=== PATIENT | male | born 1965 | race Caucasian/White ===

== ENCOUNTER 2018-01-04 10:54 | Emergency (ER) | payer MEDICAID ==
[~2018-01-04] VITALS: Ht 167.6 cm; Wt 85.7 kg
[2018-01-04] MEDS ORDERED: SODIUM CHLORIDE 0.9% 1,000 ML IV ONE (11:17)
[2018-01-04 11:46] LABS: Basophils # (auto) 0 uL; Basophils % (auto) 0.3 % (0.0-2.0); Eosinophils # (auto) 0.3 uL; Eosinophils % (auto) 2.2 % (0.0-7.0); Hematocrit 43.9 % (41.0-53.0); Hemoglobin 14.6 g/dL (13.5-17.5); Lymphocytes # (auto) 1.6 uL; Lymphocytes % (auto) 13.8 % (10.0-50.0); Mean Corpuscular Hemoglobin 29.4 pg (28.0-32.0); Mean Corpuscular Hgb Conc. 33.3 g/dL (32.0-36.0); Mean Corpuscular Volume 88.4 fL (80.0-100.0); Monocytes # (auto) 0.6 uL; Monocytes % (auto) 5.3 % (0.0-12.0); Neutrophils # (auto) 9.3 uL; Neutrophils % (auto) 78.4 % (37.0-80.0); Nucleated Red Blood Cells % 0.1 %; Platelet Count (auto) 219 10^3/uL (140-450); Red Blood Cells 4.97 10^6/uL (4.5-5.90); Red Cell Distribution Width 14.2 % (11.8-14.3); White Blood Cell 11.8 10^3/uL (4.4-10.8)
[2018-01-04 12:04] LABS: INR 0.98 (0.9-1.15); Prothrombin Time 10.7 sec (9.37-12.3)
[2018-01-04 12:11] LABS: Alanine Aminotransferase 29 U/L (16-61); Albumin 3.6 g/dL (3.4-5.0); Alkaline Phosphatase 75 U/L (45-117); Anion Gap 8 (5-15); Aspartate Aminotransferase 24 U/L (15-37); BUN/Creatinine Ratio 23.1; Bilirubin, Total 0.3 mg/dL (0.2-1.0); Blood Urea Nitrogen 25 mg/dL (7-18); Calcium 8.7 mg/dL (8.5-10.1); Carbon Dioxide 26 mmol/L (21-32); Chloride 105 mmol/L (98-107); GFR African American 92 mL/min; GFR Non-African American 76 mL/min; Glucose 139 mg/dL (74-106); Magnesium 2.6 mg/dL (1.6-2.6); Sodium 139 mmol/L (136-145); Total Protein 6.9 g/dL (6.4-8.2)
[2018-01-04] MEDS ORDERED: NALBUPHINE HCL 10 MG/1ml INJECTION IV ONE (12:15)
[2018-01-04] MEDS ORDERED: PROMETHAZINE HCL 25 MG/ML 1ML IV ONE (12:15)
[2018-01-04 12:34] LABS: Amylase 37 U/L (25-115); Lipase 119 U/L (73-393)
[2018-01-04 15:25] VITALS: BP 138/80
== END 2018-01-04 16:37 | disposition home or self-care (01) ==
LOC: ER 10:54
DX: K80.70 Calculus of gallbladder and bile duct without cholecystitis without obstruction (principal); R07.9 Chest pain, unspecified
CPT/HCPCS: 36415; 71045; 76700; 80053; 82150; 83690; 83735; 84443; 84484; 85025; 85379; 85610; 85730; 94761; 96361; 96374; 96375; 99285; J2300; J2550; J7030; 93005

== ENCOUNTER 2019-02-16 01:51 | Emergency (ER) | payer MEDICAID ==
[~2019-02-16] VITALS: Ht 167.6 cm; Wt 81.6 kg
[2019-02-16 02:10] VITALS: BP 148/85
[2019-02-16 02:29] LABS: Basophils # (auto) 0 uL; Basophils % (auto) 0.4 % (0.0-2.0); Eosinophils # (auto) 0.2 uL; Eosinophils % (auto) 2.7 % (0.0-7.0); Hematocrit 46.9 % (41.0-53.0); Hemoglobin 15.8 g/dL (13.5-17.5); Lymphocytes # (auto) 1.4 uL; Mean Corpuscular Hemoglobin 29.3 pg (28.0-32.0); Mean Corpuscular Hgb Conc. 33.7 g/dL (32.0-36.0); Monocytes # (auto) 0.7 uL; Monocytes % (auto) 7.7 % (0.0-12.0); Neutrophils # (auto) 6.7 uL; Neutrophils % (auto) 74.2 % (37.0-80.0); Nucleated Red Blood Cells % 0.1 %; Platelet Count (auto) 230 10^3/uL (140-450); Red Blood Cells 5.39 10^6/uL (4.5-5.90); Red Cell Distribution Width 14.7 % (11.8-14.3)
[2019-02-16 02:49] LABS: Urine Amorphous Crystal FEW /hpf (None Seen); Urine Bacteria FEW /hpf (None Seen); Urine Blood Negative /uL (Negative); Urine Mucus FEW (None Seen); Urine Specific Gravity 1.021 (1.001-1.035); Urine WBC <1 /hpf (0 - 3)
[2019-02-16 02:50] LABS: Albumin 3.4 g/dL (3.4-5.0); BUN/Creatinine Ratio 17.1; Calcium 8.7 mg/dL (8.5-10.1); Potassium 4.1 mmol/L (3.5-5.1)
[2019-02-16 02:53] LABS: Bilirubin, Total 1.9 mg/dL (0.2-1.0)
== END 2019-02-16 05:22 | disposition left against medical advice (07) ==
LOC: ER 01:53
DX: R10.9 Unspecified abdominal pain (principal); R11.2 Nausea with vomiting, unspecified; Z53.21 Procedure and treatment not carried out due to patient leaving prior to being seen by health care provider
CPT/HCPCS: 36415; 74176; 80053; 81001; 82150; 83690; 85025

== ENCOUNTER 2024-12-04 20:17 | Emergency (ER) | payer MEDICAID ==
[~2024-12-04] VITALS: Ht 165.1 cm; Wt 79.7 kg
[~2024-12-04 20:17] MED LIST: DOXY100C79 PO; LEVO250T58 PO
--- NOTE | 2024-12-04 21:32 | DVH ---
CLINICAL INDICATION: 2ND DIGIT POSS FB TECHNIQUE: 3 radiographic views of the right hand were obtained. Comparison: None FINDINGS/IMPRESSION: There is no evidence of acute fracture or dislocation. The visualized joint space is well maintained. The alignment is anatomical. NO RADIOPAQUE FOREIGN BODY VISIBLE.
[2024-12-04] MEDS: DexAMETHasone SOD PHOS 10MG/1ML VIAL INJ IM ONE (23:17)
[2024-12-04] MEDS: KETOROLAC TROMETH 60MG/2ML VIAL IM ONE (23:18)
[2024-12-04] MEDS: cefTRIAXone SOD 1,000 MG VL IM ONE (23:18)
[2024-12-04 23:32] VITALS: BP 146/71; PULSE 71; RESP 19; TEMP 98; O2SAT 94
[2024-12-04] MEDS ORDERED: FAMO20TA10 PO (23:43)
[2024-12-04] MEDS ORDERED: DOXY100C4 PO (23:43)
[2024-12-04] MEDS ORDERED: METH4PAK PO (23:43)
--- NOTE | 2024-12-04 23:44 | ED.PDOC ---
Back pain HPI HPI Comments This is a 59-year-old male homeless male presents to the ED chief complaint right hand pain. She reports around 2 days ago he was outside pulling weeds and plants something sharp in his 2nd digit right hand, noted no foreign bodies however states started to swell and since has spread throughout his hand. He r ates pain 6/10 on pain scale throbbing and burning in nature nonradiating type pain. Using [id number] Tylenol with little help and cleaning his hand with alcohol. Denies numbness, weakness, fever, chills, nausea or vomiting. Chief Complaint: Upper Extremity Time Seen by MD: 20:32 Primary Care Provider: NONE Reviewed Notes: Nurses Notes, Medications, Allergies Allergies: Coded Allergies: NO KNOWN ALLERGIES (Unverified , 08/25/14) Home Meds Active Scripts Famotidine (PEPCID TABLET) 20 Mg Tb, 1 TAB PO BID for 6 Days, #12 TAB Prov:VICTOR HUGO CRAVENP 12/04/24 Methylprednisolone (Medrol Dosepak) 4 Mg Harjit, 4 MG PO UD for 6 Days, #21 TAB UAD Prov:VICTOR HUGO CRAVEN 12/04/24 Doxycycline Hyclate (Doxycycline Hyclate) 100 Mg Cap, 1 CAP PO BID for 7 Days, #14 CAP Prov:VICTOR HUGO CRAVENP 12/04/24 Levofloxacin Hemihydrate (LEVOFLOXACIN) 250 Mg Tab, 750 MG PO DAILY, #14 TAB Prov:GABRIEL GREGORY MD 10/01/23 Doxycycline (Monohydrate) (Doxycycline) 100 Mg Cap, 100 MG PO BID for 14 Days, #28 CAP Prov:GABRIEL GREGORY MD 10/01/23 Information Source: Patient Mode of Arrival: Ambulatory Past Medical History PAST MEDICAL HISTORY: Denies Surgical History: Denies all surgeries Family History Family History: Reviewed,noncontributory to illness, Unobtainable Social History Smoker: Non-Smoker Alcohol: Denies ETOH Use Drugs: Methamphetamine Lives In: Home Constitutional: denies: chills, diaphoresis, fatigue, fever, malaise, sweats, weakness, others EENTM: denies: blurred vision, double vision, ear bleeding, ear discharge, ear drainage, ear pain, ear ringing, eye pain, eye redness, hearing loss, mouth pain, mouth swelling, nasal discharge, nose bleeding, nose congestion, nose pain, photophobia, tearing, throat pain, throat swelling, voice changes, others Respiratory: denies: cough, hemoptysis, orthopnea, SOB at rest, shortness of breath, SOB with excertion, stridor, wheezing, others Cardiovascular: denies: chest pain, dizzy spells, diaphoresis, Dyspnea on exertion, edema, irregular heart beat, left arm pain, lightheadedness, palpitations, PND, syncope, others Gastrointestinal: denies: abdomen distended, abdominal pain, blood streaked bowels, constipated, diarrhea, dysphagia, difficulty swallowing, hematemesis, melena, nausea, poor appetite, poor fluid intake, rectal bleeding, rectal pain, vomiting, others Genitourinary: denies: burning, dysuria, flank pain, frequency, hematuria, incontinence, penile discharge, penile sore, pain, testicle pain, testicle swelling, urgency, others Neurological: denies: dizziness, fainting, headache, left sided numbness, left sided weakness, numbness, paresthesia, pre-existing deficit, right sided numbness, right sided weakness, seizure, speech problems, tingling, tremors, weakness, others Musculoskeletal: reports: others (Right hand pain and swelling); denies: back pain, gout, joint pain, joint swelling, muscle pain, muscle stiffness, neck pain Integumetry: denies: bruises, change in color, change in hair/nails, dryness, laceration, lesions, lumps, rash, wounds, others Allergic/Immunocompromised: denies: Difficulty Healing, Frequent Infections, Hives, Itching, others Hematologic/Lymphatic: denies: anemia, blood clots, easy bleeding, easy bruising, swollen glands, others Endocrine: denies: excessive hunger, excessive sweating, excessive thirst, excessive urination, flushing, intolerance to cold, intolerance to heat, unexplained weight gain, unexplained weight loss, others Psychiatric: denies: anxiety, bipolar disorder, depression, hopeless, panic disorder, schizophrenia, sleepless, suicidal, others Physical Exam General Appearance: No Apparent Distress, Normal HEENT: Pharynx Normal Neck: Full Range of Motion, Non-Tender Respiratory: Lungs Clear, No Respiratory Distress, Normal Breath Sounds Cardiovascular: No Murmur, Normal Peripheral Pulses, Regular Rate/Rhythm Breast Exam: Deferred Gastrointestinal: Non Tender, Soft Genitalia: Deferred Pelvic: Deferred Rectal: Deferred Extremities: Normal capillary refill, Normal inspection, Normal range of motion, Non-tender, No pedal edema Musculoskeletal : Location: Right Extremity Location: Hand (Moderate edema of right hand and 2nd digit. Noted obvious impaled foreign bodies noted puncture wound to tip of 2nd digit. Erythema or drainage. 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 Was a procedure done?: No Back Pain Differential Dx Differential Diagnosis: Fracture, Musculoskeletal Pain X-Ray, Labs, Meds, VS Vital Signs Date Time Temp Pulse Resp B/P (MAP) Pulse Ox O2 Delivery O2 Flow Rate FiO2 12/04/24 23:32 71 19 94 Room Air 12/04/24 23:32 98.0 71 19 146/71 (96) 94 98.0 12/04/24 20:55 98.3 76 16 125/83 (97) 96 Current Medications Medications (Trade) Dose Ordered Sig/Florencio Route Start Time Stop Time Status Last Admin Ceftriaxone Sodium (Rocephin) 1,000 mg ONCE ONCE IM 12/04/24 22:45 12/04/24 22:46 DC 12/04/24 23:18 Dexamethasone Sodium Phosphate (Decadron Injection) 10 mg ONCE ONCE IM 12/04/24 22:45 12/04/24 22:46 DC 12/04/24 23:17 Ketorolac Tromethamine (Toradol Injection) 60 mg ONCE ONCE IM 12/04/24 22:45 12/04/24 22:46 DC 12/04/24 23:18 X-Ray, Labs, Meds, VS Comment RIGHT HAND X-RAY SHOWS NO FOREIGN BODIES OR ACUTE FINDINGS WITHOUT OSSEOUS LESIONS. LIKELY INFECTION TO RIGHT POINTER FINGER. PATIENT GIVEN DECADRON 10 MG IM, TORADOL 60 MG IM AND 1000 MG OF ROCEPHIN IM REPORTS IMPROVEMENT REQUESTING DISCHARGE AT THIS TIME. SCRIPT DOXYCYCLINE TWICE DAILY X7 DAYS. ADVISED TO FOLLOW UP AT URGENT CARE, PCP, OR BACK HERE IN THE ER FOR RE- EVALUATION IN 2-3 DAYS. ER RETURN PRECAUTIONS GIVEN PATIENT INDICATED UNDERSTANDING AND AGREES WITH DISCHARGE PLAN OF CARE. Time of 1ST Reevaluation: 23:41 Reevaluation 1ST: Improved Patient Education/Counseling: Diagnosis, Treatment, Prognosis, Need For Follow Up Family Education/Counseling: No Family Present Departure 1 Departure Time of Disposition: 23:41 Impression: Primary Impression: Infected finger Disposition: HOME / SELF CARE / HOMELESS Condition: Stable e-Prescriptions Famotidine (PEPCID TABLET) 20 Mg Tb 1 TAB PO BID for 6 Days, #12 TAB Prov: VICTOR HUGO CRAVEN 12/04/24 Methylprednisolone (Medrol Dosepak) 4 Mg Harjit 4 MG PO UD for 6 Days, #21 TAB UAD Prov: VICTOR HUGO CRAVEN 12/04/24 Doxycycline Hyclate (Doxycycline Hyclate) 100 Mg Cap 1 CAP PO BID for 7 Days, #14 CAP Prov: VICTOR HUGO CRAVEN 12/04/24 Discharged With: Self Critical Care Note Critical Care Time?: No Stability Stability form required: VICTOR HUGO Lan Dec 04, 2024 23:44
== END 2024-12-05 00:08 | disposition home or self-care (01) ==
LOC: ER 20:17
DX: L08.9 Local infection of the skin and subcutaneous tissue, unspecified (principal); M79.641 Pain in right hand; Z79.899 Other long term (current) drug therapy
CPT/HCPCS: 73130; 96372; 99284; J0696; J1100; J1885

== ENCOUNTER 2025-09-16 13:29 | Emergency (ER) | payer MEDICAID ==
[~2025-09-16] VITALS: Ht 167.6 cm; Wt 78.2 kg
--- NOTE | 2025-09-16 13:41 | ECG ---
[facility] Test Date: 2025-09-16 Test Time: 13:36:01 Pat Name: SABINE WHITE Department: Room: Gender: M Fur Operator: WES : 1965 Requested By: EMERGENCY EMERGENCY Order Number: [id number] Reading MD: Diaz Valero Measurements Intervals [place] Rate: 86 P: 47 ID: [id number] QRS: 27 QRSD: 81 T: 48 QT: 356 QTc: 426 Interpretive Statements Sinus rhythm Electronically Signed On 09-19-2025 14:58:37 PDT by Diaz Valero Please click the below link to view image of tracing.
--- NOTE | 2025-09-16 14:16 | ED.PDOC ---
SOB-HPI HPI Comments This is a 60 year-old male who presents to the ED with a chief complaint of SOB and fatigue for X3 months S/P fall and hitting his head. 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 Patient reports being homeless months ago, but is not anymore. Patient has no further complaints at this time and otherwise denies further associated symptoms of palpitations, cough, chest pain, LOC, fever, chills, or N/V/D. Chief Complaint: Shortness of Breath Time Seen by MD: 14:05 Primary Care Provider: NONE Reviewed notes: Medications, Allergies Information Source: Patient Mode of Arrival: Ambulatory Severity: Moderate Timing: Months Duration: Since onset Context: At Rest, With Light Exertion, With Heavy Exertion Associated Signs and Symptoms: None Past Medical History PAST MEDICAL HISTORY: Denies Surgical History: Denies all surgeries Family History Family History: Reviewed,noncontributory to illness, Unobtainable Social History Smoker: Non-Smoker Alcohol: Denies ETOH Use Drugs: Methamphetamine, Other (Speed) Lives In: Home Constitutional: reports: fatigue; denies: chills, diaphoresis, fever, malaise, sweats, weakness, others EENTM: denies: blurred vision, double vision, ear bleeding, ear discharge, ear drainage, ear pain, ear ringing, eye pain, eye redness, hearing loss, mouth pain, mouth swelling, nasal discharge, nose bleeding, nose congestion, nose p ain, photophobia, tearing, throat pain, throat swelling, voice changes, others Respiratory: reports: SOB at rest, shortness of breath, SOB with excertion; denies: cough, hemoptysis, orthopnea, stridor, wheezing, others Cardiovascular: denies: chest pain, dizzy spells, diaphoresis, Dyspnea on exertion, edema, irregular heart beat, left arm pain, lightheadedness, palpitations, PND, syncope, others Gastrointestinal: denies: abdomen distended, abdominal pain, blood streaked bowels, constipated, diarrhea, dysphagia, difficulty swallowing, hematemesis, melena, nausea, poor appetite, poor fluid intake, rectal bleeding, rectal pain, vomiting, others Genitourinary: denies: burning, dysuria, flank pain, frequency, hematuria, incontinence, penile discharge, penile sore, pain, testicle pain, testicle swelling, urgency, others Neurological: denies: dizziness, fainting, headache, left sided numbness, left sided weakness, numbness, paresthesia, pre-existing deficit, right sided n umbness, right sided weakness, seizure, speech problems, tingling, tremors, weakness, others Musculoskeletal: denies: back pain, gout, joint pain, joint swelling, muscle pain, muscle stiffness, neck pain, others Integumetry: denies: bruises, change in color, change in hair/nails, dryness, laceration, lesions, lumps, rash, wounds, others Allergic/Immunocompromised: denies: Difficulty Healing, Frequent Infections, Hives, Itching, others Hematologic/Lymphatic: denies: anemia, blood clots, easy bleeding, easy bruising, swollen glands, others Endocrine: denies: excessive hunger, excessive sweating, excessive thirst, excessive urination, flushing, intolerance to cold, intolerance to heat, unexplained weight gain, unexplained weight loss, others Psychiatric: denies: anxiety, bipolar disorder, depression, hopeless, panic disorder, schizophrenia, sleepless, suicidal, others All Other Systems: Reviewed and Negative Physical Exam General Appearance: Moderate Distress HEENT: Normal ENT Inspection, Pharynx Normal, TMs Normal Neck: Full Range of Motion, Non-Tender, Normal, Normal Inspection Respiratory: Chest Non-Tender, Lungs Clear, No Accessory Muscle Use, No Respiratory Distress, Normal Breath Sounds Cardiovascular: No Edema, No JVD, No Murmur, No Gallop, Normal Peripheral Pulses, Regular Rate/Rhythm Breast Exam: Deferred Gastrointestinal: No Organomegaly, Non Tender, No Pulsatile Mass, Normal Bowel Sounds, Soft Genitalia: Deferred Pelvic: Deferred Rectal: Deferred Extremities: No calf tenderness, Normal capillary refill, Normal inspection, Normal range of motion, Non-tender, No pedal edema Musculoskeletal : Apperance: Normal Neurologic: Alert, 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 Was a procedure done?: No Differential Dx Differential Diagnosis: Anxiety, Asthma, Bronchitis, CHF, COPD, Pneumonia, Sinusitis X-Ray, Labs, Meds, VS Vital Signs Date Time Temp Pulse Resp B/P (MAP) Pulse Ox O2 Delivery O2 Flow Rate FiO2 09/16/25 15:38 19 98 Room Air* 0 21 09/16/25 15:38 98.0 70 19 140/86 (104) 98 98.0 09/16/25 15:38 70 19 98 Room Air* 0 21 09/16/25 14:16 86 09/16/25 13:36 86 09/16/25 13:30 98.9 100 20 142/93 97 98.9 Lab Test 09/16/25 14:33 Range/Units White Blood Count 10.0 4.4-10.8 10^3/uL Red Blood Count 3.73 L 4.5-5.90 10^6/uL Hemoglobin 10.7 L 13.5-17.5 g/dL Hematocrit 31.7 L 41.0-53.0 % Mean Corpuscular Volume 85.0 80.0-100.0 fL Mean Corpuscular Hemoglobin 28.6 28.0-32.0 pg Mean Corpuscular Hemoglobin Concent 33.6 32.0-36.0 g/dL Red Cell Distribution Width 15.2 H 11.8-14.3 % Platelet Count 445 140-450 10^3/uL Mean Platelet Volume 6.3 L 6.9-10.8 fL Neutrophils (%) (Auto) 68.6 37.0-80.0 % Lymphocytes (%) (Auto) 19.2 10.0-50.0 % Monocytes (%) (Auto) 8.5 0.0-12.0 % Eosinophils (%) (Auto) 3.3 0.0-7.0 % Basophils (%) (Auto) 0.4 0.0-2.0 % Neutrophils # (Auto) 6.9 1.6-8.6 10 ^3/uL Lymphocytes # (Auto) 1.9 0.4-5.4 10 ^3/uL Monocytes # (Auto) 0.9 0-1.3 10 ^3/uL Eosinophils # (Auto) 0.3 0-0.8 10 ^3/uL Basophils # (Auto) 0 0-0.2 10 ^3/uL Nucleated Red Blood Cells 0.0 % Sodium Level 140 136-145 mmol/L Potassium Level 4.0 3.5-5.1 mmol/L Chloride Level 108 H 98-107 mmol/L Carbon Dioxide Level 23 20-31 mmol/L Anion Gap 9 5-15 Blood Urea Nitrogen 49 H 9-23 mg/dL Creatinine 3.54 H 0.700-1.30 mg/dL Glomerular Filtration Rate Calc 19 >90 mL/min BUN/Creatinine Ratio 13.8 10.0-20.0 Serum Glucose 95 74-106 mg/dL Calcium Level 9.1 8.7-10.4 mg/dL [facility] [id number] [place] [address] Ph: [phone] DIAGNOSTIC IMAGING Diagnostic Imaging Report : [id number] Signed PATIENT: SABINE WHITE ACCT: [id number] UNIT: [id number] : 1965 LOC: ER ROOM / BED: / AGE / SEX: 60 / M ADM STATUS: REG ER SERVICE 1415 ORDERING PHYSICIAN: CURTIS CLINTON MD PROCEDURE(s): CXRP - CHEST PORTABLE REASON: sob ORDER NUMBER(s): [id number], ACCESSION NUMBER(s): [id number] CHEST RADIOGRAPH Indication: sob Technique: Single frontal view of the chest was obtained COMPARISON: None FINDINGS: Lines and Tubes: None Lungs: Clear Pleura: No effusion. No pneumothorax. Cardiomediastinal contours: Unremarkable Bones: Unremarkable IMPRESSION: No acute disease. Patient alert. Complaining of shortness a breath. Vitals stable. Answering all questions. Ambulating. No sign of any acute process. Good air entry. No leg swelling. Saturation pristine on room air. Heart rate within normal limits. He is anxious. Was given prescription of prednisone amoxicillin antibiotic. Explained to the patient. Was told to follow up with his primary care physician. Was told to come back if there is any problem. Time of 1ST Reevaluation: 14:45 Reevaluation 1ST: Unchanged Patient Education/Counseling: Diagnosis, Treatment Family Education/Counseling: No Family Present SEPSIS Sepsis Screen Date sepsis recognized/suspect: Sep 16, 2025 Time Sepsis recognized/suspect: 1332 Recent Procedure: No On Antibiotic Therapy: No Respiratory Rate >20: No Heart Rate >90: Yes Temp<36 C (96.8 F) or >38.3 C: No SBP <90 or MAP <65 mmHG: No New Acute Mental Status Change: No Is the patient on CPAP, BIPAP,: No Physician Orders Chest Portable (09/16/25 14:15) Vital Signs Date Time Temp Pulse Resp B/P (MAP) Pulse Ox O2 Delivery O2 Flow Rate FiO2 09/16/25 15:38 19 98 Room Air* 0 21 09/16/25 15:38 98.0 70 19 140/86 (104) 98 98.0 09/16/25 15:38 70 19 98 Room Air* 0 21 09/16/25 14:16 86 09/16/25 13:36 86 09/16/25 13:30 98.9 100 20 142/93 97 98.9 Laboratory Tests Test 09/16/25 14:33 White Blood Count 10.0 10^3/uL (4.4-10.8) Departure 1 Departure Time of Disposition: 14:32 Impression: Primary Impression: Pneumonitis Disposition: 01 HOME / SELF CARE / HOMELESS Condition: Good e-Prescriptions Amoxicillin Trihydrate (Amoxicillin) 500 Mg Tab 1 TAB PO TID for 10 Days, #30 TAB Prov: CURTIS CLINTON MD 09/16/25 Prednisone (Prednisone) 10 Mg Tab 10 MG PO DAILY for 5 Days, #5 MG Prov: CURTIS CLINTON MD 09/16/25 Discharged With: Self Critical Care Note Critical Care Time?: No Stability Stability form required: No Heart Score Heart Score: Heart Score Response (Comments) Value History Slightly Suspicious 0 EKG Normal 0 Age 45-64 1 Risk Factors No known risk factors 0 Troponin N/A 0 Total 1 I personally scribed for CURTIS CLINTON MD ([email or web address]) on 09/16/25 at 14:16. Electronically submitted by Adore Hubbard (youwho). I personally scribed for CURTIS CLINTON MD ([email or web address]) on 09/16/25 at 17:04. Electronically submitted by Adore Hubbard (youwho). CURTIS CLINTON MD Sep 16, 2025 14:16
--- NOTE | 2025-09-16 14:44 | DVH ---
CHEST RADIOGRAPH Indication: sob Technique: Single frontal view of the chest was obtained COMPARISON: None FINDINGS: Lines and Tubes: None Lungs: Clear Pleura: No effusion. No pneumothorax. Cardiomediastinal contours: Unremarkable Bones: Unremarkable IMPRESSION: No acute disease.
[2025-09-16 15:05] LABS: Hematocrit 31.7 % (41.0-53.0); Nucleated Red Blood Cells % 0.0 %
[2025-09-16 15:08] LABS: Hemoglobin 10.7 g/dL (13.5-17.5); Mean Corpuscular Hemoglobin 28.6 pg (28.0-32.0); Mean Corpuscular Volume 85.0 fL (80.0-100.0)
[2025-09-16 15:11] LABS: Potassium 4.0 mmol/L (3.5-5.1); Sodium 140 mmol/L (136-145)
[2025-09-16 15:12] LABS: Anion Gap 9 (5-15); Calcium 9.1 mg/dL (8.7-10.4); Carbon Dioxide 23 mmol/L (20-31)
[2025-09-16 15:17] LABS: BUN/Creatinine Ratio 13.8 (10.0-20.0); Glucose 95 mg/dL (74-106)
[2025-09-16 15:19] LABS: Blood Urea Nitrogen 49 mg/dL (9-23); Chloride 108 mmol/L (98-107)
[2025-09-16 15:38] VITALS: PULSE 70; RESP 19; O2SAT 98
[2025-09-16] MEDS ORDERED: AMOX500T3 PO (17:18)
[2025-09-16] MEDS ORDERED: PRED10TA PO (17:18)
[2025-09-16 17:48] VITALS: BP 145/81; PULSE 69; RESP 20; TEMP 98.2; O2SAT 98
== END 2025-09-16 17:48 | disposition home or self-care (01) ==
LOC: ER 13:29
DX: J18.9 Pneumonia, unspecified organism (principal)
CPT/HCPCS: 36415; 71045; 80048; 85025; 93005